=== PATIENT | male | born 1985 | race Two or more races ===

== ENCOUNTER 2017-09-06 10:23 | Emergency (ER) | payer SELFPAY, OTHER ==
[~2017-09-06] VITALS: Ht 170.2 cm; Wt 65.8 kg
[2017-09-06 10:38] VITALS: BP 131/84
--- NOTE | 2017-09-06 11:20 | Emergency Room Report ---
History of Present Illness General Chief Complaint: Medical Clearance Source: Patient Present Illness HPI Patient is in police custody. He had told police about an old injury of his left shoulder. [employer] bring him in for medical clearance for incarceration. The patient has no acute complaints. Allergies: Coded Allergies: No Known Allergies (Unverified , 09/06/17) Patient History Past Medical History: none Reviewed Nursing Documentation: PMH: Agreed; PSxH: Agreed Nursing Documentation-PMH Past Medical History: No Stated History Review of Systems All Other Systems: negative except mentioned in HPI Physical Exam Vital Signs Date Time Temp Pulse Resp B/P (MAP) Pulse Ox O2 Delivery O2 Flow Rate FiO2 09/06/17 10:30 98.5 121 20 131/84 100 Room Air 98.4 Sp02 EP Interpretation: reviewed, normal General Appearance: no apparent distress, alert, GCS 15, non-toxic Head: normocephalic, atraumatic Eyes: bilateral eye normal inspection, bilateral eye PERRL ENT: hearing grossly normal, normal pharynx, no angioedema, normal voice Neck: full range of motion, supple/symm/no masses Respiratory: chest non-tender, lungs clear, normal breath sounds, no respiratory distress, no retraction, no accessory muscle use, speaking full sentences Cardiovascular #1: regular rate, rhythm, no edema Gastrointestinal: normal bowel sounds, non tender, soft, non-distended, no guarding, no rebound Rectal: deferred Musculoskeletal: back normal, gait/station normal, normal range of motion, non- tender Neurologic: alert, oriented x3, responsive, motor strength/tone normal, sensory intact, speech normal Psychiatric: judgement/insight normal, memory normal, mood/affect normal, no suicidal/homicidal ideation Skin: normal color, no rash, warm/dry, well hydrated Medical Decision Making Diagnostic Impression: Primary Impression: Medical clearance for incarceration ER Course This patient has no acute complaint. He has an old shoulder injury. He is medically cleared for incarceration. Last Vital Signs Date Time Temp Pulse Resp B/P (MAP) Pulse Ox O2 Delivery O2 Flow Rate FiO2 09/06/17 10:38 98.4 20 131/84 100 Room Air 98.4 09/06/17 10:30 121 Disposition: D/C TO LAW ENFORCEMENT IN CUST Condition: Stable Lita Bernal DO Sep 06, 2017 11:20
[2017-09-06 11:34] VITALS: BP 125/86
== END 2017-09-06 11:38 ==
LOC: EMR 11:32
DX: Z02.89 Encounter for other administrative examinations (principal)
CPT/HCPCS: 99283